=== PATIENT | female | born 1925 | race African-American/Black ===

== ENCOUNTER 2016-12-26 14:41 | Emergency (ER) | payer MEDICARE ==
[~2016-12-26] VITALS: Ht 154.9 cm; Wt 80.0 kg
[~2016-12-26 14:41] MED LIST: AMLO1CAP56; ASPI-1158; LINA5TAB PO; METF500T4 PO; PIOG15TA6 PO; SAXA5TAB
[2016-12-26] MEDS ORDERED: AMLODIPINE 5MG TABLET PO ONE (20:30)
[2016-12-26] MEDS ORDERED: ACETAMINOPHEN WITH CODEINE 300/30MG TABLET PO ONE (20:30)
[2016-12-26] MEDS ORDERED: BENAZEPRIL 20MG TABLET PO ONE (20:30)
[2016-12-26 23:43] VITALS: BP 170/95
== END 2016-12-26 23:45 | disposition home or self-care (01) ==
LOC: ER 21:33
DX: M25.531 Pain in right wrist (principal); I16.0 Hypertensive urgency; W01.0XXA Fall on same level from slipping, tripping and stumbling without subsequent striking against object, initial encounter; Y93.89 Activity, other specified; Y92.9 Unspecified place or not applicable; Z79.84 Long term (current) use of oral hypoglycemic drugs; E11.9 Type 2 diabetes mellitus without complications; R29.6 Repeated falls; Z79.899 Other long term (current) drug therapy
CPT/HCPCS: 29125; 73110; 99284